=== PATIENT | male | born 1990 | race Caucasian/White ===

== ENCOUNTER 2021-04-03 13:06 | Emergency (ER) | payer OTHER ==
--- NOTE | 2021-04-03 13:16 | NUR ---
called for triage not in the waiting room.
--- NOTE | 2021-04-03 13:21 | NUR ---
called for triage not in the waiting room.
--- NOTE | 2021-04-03 14:08 | NUR ---
called for triage not in the waiting room.
== END 2021-04-03 14:09 | disposition left against medical advice (07) ==
LOC: ER 13:15
DX: Z53.21 Procedure and treatment not carried out due to patient leaving prior to being seen by health care provider (principal)

== ENCOUNTER 2021-04-03 14:27 | Emergency (ER) | payer OTHER ==
[~2021-04-03] VITALS: Ht 177.8 cm; Wt 81.6 kg
[2021-04-03 14:35] VITALS: BP 117/73
--- NOTE | 2021-04-03 15:50 | NUR ---
Patient discharged to home in stable condition. Written and verbal after care instructions given. Patient verbalizes understanding of instruction.
== END 2021-04-03 15:54 | disposition home or self-care (01) ==
LOC: ER 14:51
DX: S63.8X1A Sprain of other part of right wrist and hand, initial encounter (principal); F17.200 Nicotine dependence, unspecified, uncomplicated; Z60.2 Problems related to living alone; X58.XXXA Exposure to other specified factors, initial encounter; Y93.71 Activity, boxing; Y92.89 Other specified places as the place of occurrence of the external cause; Y99.8 Other external cause status
CPT/HCPCS: 73130-TC

== ENCOUNTER 2022-06-30 13:40 | Emergency (ER) | payer OTHER ==
[~2022-06-30] VITALS: Ht 185.4 cm; Wt 91.2 kg
--- NOTE | 2022-06-30 14:15 | NUR ---
BIBS C/O COUGH X 2 WEEKS WITH BLOOD IN SPUTUM YESTERDAY. AMBULATORY, PLACED ON BED, BREATHING EVEN AND NON-LABORED SATURATING AT 97%RA
--- NOTE | 2022-06-30 14:35 | NUR ---
X-RAY TECH AT BEDSIDE
[2022-06-30] MEDS ORDERED: ALBU18HF2 INH (16:06)
[2022-06-30] MEDS ORDERED: PRED50TA PO (16:06)
--- NOTE | 2022-06-30 16:15 | NUR ---
Patient discharged to home in stable condition. Written and verbal after care instructions given. Patient verbalizes understanding of instruction.
[2022-06-30 16:23] VITALS: BP 135/75
== END 2022-06-30 16:15 | disposition home or self-care (01) ==
LOC: ER 13:42
DX: J20.9 Acute bronchitis, unspecified (principal); F17.200 Nicotine dependence, unspecified, uncomplicated; Z60.2 Problems related to living alone; Z79.899 Other long term (current) drug therapy
CPT/HCPCS: 71045-TC

== ENCOUNTER 2022-07-31 21:29 | Emergency (ER) | payer OTHER ==
[~2022-07-31] VITALS: Ht 188 cm; Wt 122.0 kg
[~2022-07-31 21:29] MED LIST: ALBU18HF2 INH; PRED50TA PO
[2022-07-31] MEDS ORDERED: KETOROLAC TROMETHAMINE INJ 30 MG/ML VIAL ONE (22:26)
--- NOTE | 2022-07-31 22:38 | NUR ---
LAC #18G S/L BLOOD COLLECTED AND SENT TO LAB
[2022-07-31] MEDS: KETOROLAC TROMETHAMINE INJ 30 MG/ML VIAL IV ONE (22:39)
--- NOTE | 2022-07-31 22:39 | NUR ---
PUBLICATIONS EDITOR AT PT'S BEDSIDE
[2022-07-31 22:52] LABS: BASOPHILS # (AUTO) 0.1 K/uL (0.0-0.2); BASOPHILS % (AUTO) 0.6 % (0.0-2.0); EOSINOPHILS % (AUTO) 0.9 % (0.0-6.0); HEMATOCRIT 47 % (39-51); HEMOGLOBIN 15.8 g/dL (13.5-17.5); LYMPHOCYTES # (AUTO) 2.5 K/uL (0.8-4.8); LYMPHOCYTES % (AUTO) 26.8 % (20.0-44.0); MEAN CORPUSCULAR HGB CONC 33 g/dl (31.0-36.0); MEAN CORPUSCULAR VOLUME 90 fL (80-96); MONOCYTES # (AUTO) 0.5 K/uL (0.1-1.30); MONOCYTES % (AUTO) 4.8 % (2.0-12.0); NEUTROPHILS # (AUTO) 6.4 K/uL (1.8-8.9); NEUTROPHILS % (AUTO) 66.9 % (43.0-81.0); PLATELET COUNT (AUTO) 320 K/uL (150-450); RED BLOOD CELL COUNT(AUTO) 5.25 MIL/uL (4.5-6.0); WHITE BLOOD COUNT (AUTO) 9.5 K/uL (4.3-11.0)
[2022-07-31 23:11] LABS: D-DIMER 0.19 mg/L(FEU (0.17-0.50)
[2022-07-31 23:18] LABS: CALCIUM, SERUM 9.4 mg/dL (8.5-10.1); CARBON DIOXIDE 27 mmol/L (21-32); CHLORIDE 102 mmol/L (98-107); CREATININE 0.9 mg/dL (0.6-1.3); GLUCOSE 91 mg/dL (74-106); SODIUM SERUM 138 mmol/L (136-145); UREA NITROGEN, BLOOD 10 mg/dL (7-18)
[2022-07-31 23:27] LABS: ALANINE AMINOTRANSFERASE 48 U/L (12-78); ALBUMIN 4.1 g/dL (3.4-5.0); ALKALINE PHOSPHATASE 71 U/L (46-116); ASPARTATE AMINOTRANSFERASE 19 U/L (15-37); BILIRUBIN,DIRECT 0.1 mg/dL (0.0-0.2); BILIRUBIN,TOTAL 0.3 mg/dL (0.2-1.0); TOTAL PROTEIN, SERUM 7.8 g/dL (6.4-8.2)
[2022-08-01 00:23] VITALS: BP 140/78
== END 2022-08-01 00:23 | disposition home or self-care (01) ==
LOC: ER 21:39
DX: R07.9 Chest pain, unspecified (principal); F17.210 Nicotine dependence, cigarettes, uncomplicated; Z60.2 Problems related to living alone; Z79.51 Long term (current) use of inhaled steroids; Z79.52 Long term (current) use of systemic steroids
CPT/HCPCS: 99285; 96374; 71045; 99406; 93005; 85025; 80048; 80076; 85378; 36415; 84484; 85730; J1885

== ENCOUNTER 2023-11-08 08:28 | Emergency (ER) | payer OTHER ==
[~2023-11-08] VITALS: Ht 172.7 cm; Wt 115.7 kg
[2023-11-08] MEDS ORDERED: NAPR-1009 PO (08:53)
[2023-11-08] MEDS ORDERED: NAPROXEN 250 MG TABLET ONE (09:07)
[2023-11-08] MEDS: NAPROXEN 250 MG TABLET PO ONE (09:08)
[2023-11-08 09:13] VITALS: BP 121/67; TEMP 208; O2SAT 99
== END 2023-11-08 09:14 | disposition home or self-care (01) ==
LOC: ER 08:33
DX: M25.512 Pain in left shoulder (principal); R94.31 Abnormal electrocardiogram [ECG] [EKG]; Z60.2 Problems related to living alone